=== PATIENT | female | born 1995 | race African-American/Black ===

== ENCOUNTER 2023-09-14 01:03 | Emergency (ER) | payer OTHER, SELFPAY ==
[2023-09-14 01:18] VITALS: BP 134/85; PULSE 98; RESP 18; TEMP 37.2; O2SAT 98; BMI 41.6
--- NOTE | 2023-09-14 05:09 | PC.NURSE ---
PT RANG CALL ANAND APPROX 0340 ASKING WHEN SHE WILL BE SEEN. EDUCATED PATIENT SHE IS WAITING FOR PRIMARY EVAL BY ED PROVIDER, CANNOT GIVE WAIT TIME AT THIS TIME. PT REPORTS SHE DOES NOT NEED TO BE SEEN AND JUST NEEDS A NOTE STATING SHE CAN PARTICIPATE IN THE [employer] WITHOUT RESTRICTIONS. EDUCATED PATIENT WILL NEED TO BE EVALUATED IN ORDER TO OBTAIN THIS NOTE. PATIENT IN AGREEMENT. UPON ROUNDING WITH PATIENTS, PATIENT IS NOT IN ROOM OR WAITING ROOM. PATIENT LWBS.
== END 2023-09-14 05:11 | disposition left against medical advice (07) ==
PROVIDERS: Emergency Provider Emergency Medicine
DX: N64.4 Mastodynia (principal)
CPT/HCPCS: 99281

== ENCOUNTER 2024-01-15 17:15 | Emergency (ER) | payer OTHER, SELFPAY ==
[2024-01-15 17:23] VITALS: BP 149/98; PULSE 101; RESP 20; TEMP 37.2; O2SAT 98; BMI 36.6
--- NOTE | 2024-01-15 17:38 | ED_ITS ---
HPI - Headache General Chief Complaint: Headache Stated Complaint: headache Time Seen by Provider: 01/15/24 21:22 Source: patient Mode of arrival: ambulatory Limitations: no limitations History of Present Illness ED Provider: Dr. Gonzalez HPI Narrative: Patient with a history of headaches, according to her description she has an appointment with a neurologist for pseudotumor cerebri. Tonight she has a worsening headache, no vomiting no blurry vision MD elicited complaint: headache Pertinent past history: migraines Onset (ago): day(s) Onset description: gradually Related Data Previous Rx's ?Medication ?Instructions ?Recorded metoclopramide HCl 10 mg tablet 10 mg PO Q6H PRN headache #14 tabs 01/15/24 (Reglan) Allergies Allergy/AdvReac Type Severity Reaction Status Date / Time No Known Allergies Allergy Verified 01/15/24 17:27 Review of Systems 2 Review of Systems: Yes all other systems are reviewed and are negative Neurologic: Denies Sensory deficit (Neuro) [facility] Social History Social History Advance Directives: No Advance Directives Information Provided: No Do you have a plan to hurt others: No Plan Physical Exam 2 Vital Signs: Vital Signs: Last Vital Signs Temp 97.7 F 01/15/24 22:59 Pulse 80 01/15/24 22:59 Resp 14 01/15/24 22:59 BP 126/80 01/15/24 22:59 Pulse Ox 100 01/15/24 22:59 O2 Del Method Room Air 01/15/24 21:45 BMI result Body Mass Index 36.6 Const: Nutritional Appearance: obese Orientation/consciousness: oriented to person and patient oriented x3 Limitations: no limitations HEENT: Head: Yes normal to inspection Ears: external ears normal General nose exam: Normal external nose present Mouth: Normal oral and palatal mucosa present and oropharynx normal Throat: Yes posterior oropharynx normal Eyes: Other: optic disks normal General: appearance normal, both eyes and all related structures Neck: Other: supple Neck: Yes normal visual inspection Chest: Chest palpation & inspection: normal inspection of the chest Resp: Auscultation: clear to auscultation bilaterally Cardio: Jugular venous distension: no JVD Rate: regular rate Rhythm: r egular rhythm Heart sounds: S1 normal heart sound present and S2 normal heart sound present GI: Inspection: Yes normal to inspection Palpation (GI): Soft to palpation, nontender and No hepatosplenomegaly present Auscultation: normal bowel sounds : General: Yes no CVA tenderness Back/Spine/Pelvis: Back: no CVA tenderness Skin: General skin exam: no rashes or lesions noted Neuro: General: oriented to person and patient oriented x3 Cranial nerves: Yes CN's II-XII intact bilaterally Motor exam (neuro): 5/5 motor strength present throughout Sensory Exam: No Sensory deficit (Neuro) Extrem: General: Yes normal to inspection Psych: Appearance: grossly normal Course Course Course Narrative: This is a Rapid Medical Examination (RME) performed by Caleb Hopkins PA-C in triage. Full HPI, ROS, assessment and treatment plan per primary provider in the Main ED. 28 yo female hx of intracranial HTN here for eval of intractable headache x2 days. reports pain to entire head with assoc nausea w/o vomiting. taking tylenol which temporarily reliefs her AYALA however it never completely resolves. Has first appointment with neurologist on Monday. called PCP today asking for pain meds to carry her over until neuro appointment however they advised her to come to ED instead. + no focal neuro deficits. perrla Plan: labs, migraine cocktail Reevaluation(s) Reevaluation #1: patient well appearing with start on reglan for headache Time: 22:40 Medications Administered Discontinued Medications Generic Name Dose Route Start Last Admin Trade Name Yvanq PRN Reason Stop Dose Admin Acetaminophen 975 mg 01/15/24 19:18 01/15/24 19:22 Acetaminophen 325 Mg Tablet PO 01/15/24 19:19 975 mg ONCE ONE Administration Ketorolac Tromethamine 60 mg 01/15/24 21:29 01/15/24 22:23 Ketorolac Tromethamine 60 Mg/2 Ml Vial IM 01/15/24 21:30 60 mg ONCE ONE Administration Metoclopramide HCl 10 mg 01/15/24 21:29 01/15/24 22:24 Metoclopramide Hcl 10 Mg/2 Ml Vial IM 01/15/24 21:30 10 mg ONCE ONE Administration Medical Decision Making Differential Diagnosis Differential Diagnoses: The differential diagnosis associated with the presentation includes (headache, migraine, pseudotumor cerebri) Lab Data 01/15/24 18:18 01/15/24 18:18 Labs: Lab Results 01/15/24 Range/Units 18:18 WBC 8.6 (4.8-10.8) X10*3/uL RBC 4.97 (4.20-5.50) X10*6/uL Hgb 12.0 (12.0-16.0) g/dl Hct 38.6 (37.0-47.0) % MCV 77.7 L (80.0-98.0) fL MCH 24.1 L (27.0-33.0) pg MCHC 31.1 (31.0-35.0) g/dl RDW 14.7 (11.0-16.0) % Plt Count 281 (160-400) X10*3/uL MPV 11.3 (9.4-12.3) fL Immature Gran % (Auto) 0.1 (0.0-0.4) % Neut % (Auto) 60.9 (45-73) % Lymph % (Auto) 29.5 (20-40) % [place] % (Auto) 6.2 (2-11) % Eos % (Auto) 2.8 (0-4) % Baso % (Auto) 0.5 (0-2) % Lymph # (Auto) 2.5 (1.2-4.9) X10*3/uL [place] # (Auto) 0.5 (0.1-1.2) X10*3/uL Eos # (Auto) 0.2 (0.0-0.4) X10*3/uL Baso # (Auto) 0.0 (0.0-0.2) X10*3/uL Abs Immat Gran (auto) 0.01 (0.00-0.03) X10*3/uL Absolute Neuts (auto) 5.2 (2.0-8.3) x10*3/uL Absolute Nucleated RBC 0.000 (0.0-0.012) X10*3/uL Nucleated RBC % (auto) 0.0 (0.0-0.2) /100WBC Sodium 141 (135-145) mmol/L Potassium 4.1 (3.3-5.1) mmol/L Chloride 109 H (96-108) mmol/L Carbon Dioxide 27 (22-29) mmol/L Anion Gap 9 L (12-20) BUN 11 (9-16) mg/dL Creatinine 0.97 (0.5-1.4) mg/dL Estim Creat Clear Calc 101.9 Estimated GFR > 60 Random Glucose 91 (60-115) mg/dL Calcium 9.6 (8.4-10.2) mg/dL Magnesium 1.7 (1.6-2.6) mg/dL Total Bilirubin 0.3 (0.0-1.0) mg/dL AST 16 (5-31) U/L ALT 12 (0-31) U/L Alkaline Phosphatase 68 (39-117) U/L Total Protein 7.1 (6.5-8.0) g/dL Albumin 3.8 (3.5-5.0) g/dL Beta HCG, Quant < 2 mIU/mL Tests considered The following testing was considered but not selected: CT of brain but patient had recent MRI Prescription Management I considered prescription management with: Antibiotic (no evidence of bacterial infection) Discharge Plan Discharge Clinical Impression: Migraine, Headache, Pseudotumor cerebri Patient Disposition: Home, Self-Care Instructions: Acute Headache (ED) Prescriptions: New metoclopramide HCl [Reglan] 10 mg tablet 10 mg PO Q6H PRN (Reason: headache) Qty: 14 0RF Referrals: Physician,Unknown J [Primary Care Provider] - 3 days Interventions: ED Discharge Assessment Last Done: 01/15/24 22:59 Discharge Date/Time: 01/15/24 23:00 Print Language: Argentine
[2024-01-15 18:22] LABS: MANUAL DIFF FLAG NO
[2024-01-15 18:39] LABS: Basophils Percent Auto 0.5 % (0-2); Eosinophils Absolute Auto 0.2 X10*3/uL (0.0-0.4); Eosinophils Percent Auto 2.8 % (0-4); Hematocrit 38.6 % (37.0-47.0); Imm Gran Abs Auto 0.01 X10*3/uL (0.00-0.03); Imm Gran Pct Auto 0.1 % (0.0-0.4); Lymphocytes Absolute Auto 2.5 X10*3/uL (1.2-4.9); Lymphocytes Percent Auto 29.5 % (20-40); Mean Corpuscular HGB Conc 31.1 g/dl (31.0-35.0); Mean Corpuscular Hemoglobin 24.1 pg (27.0-33.0); Mean Corpuscular Volume 77.7 fL (80.0-98.0); Mean Platelet Volume 11.3 fL (9.4-12.3); Monocytes Absolute Auto 0.5 X10*3/uL (0.1-1.2); Monocytes Percent Auto 6.2 % (2-11); Neutrophils Absolute Auto 5.2 x10*3/uL (2.0-8.3); Neutrophils Percent Auto 60.9 % (45-73); Platelet Count 281 X10*3/uL (160-400); Red Blood Count 4.97 X10*6/uL (4.20-5.50); Red Cell Distribution Width 14.7 % (11.0-16.0); White Blood Count 8.6 X10*3/uL (4.8-10.8)
[2024-01-15 18:50] LABS: Alanine Aminotransferase 12 U/L (0-31); Albumin Level 3.8 g/dL (3.5-5.0); Alkaline Phosphatase 68 U/L (39-117); Anion Gap 9 (12-20); Aspartate Amino Transferase 16 U/L (5-31); Bilirubin Total 0.3 mg/dL (0.0-1.0); Blood Urea Nitrogen 11 mg/dL (9-16); Calcium 9.6 mg/dL (8.4-10.2); Carbon Dioxide 27 mmol/L (22-29); Chloride 109 mmol/L (96-108); Creatinine Clr Calc Pharmacy 101.9; Estimated Glomerular Filt Rate > 60; Glucose Random 91 mg/dL (60-115); HCG Quantitative < 2 mIU/mL; Magnesium 1.7 mg/dL (1.6-2.6); Potassium 4.1 mmol/L (3.3-5.1); Sodium 141 mmol/L (135-145); Total Protein 7.1 g/dL (6.5-8.0)
[2024-01-15] MEDS: Acetaminophen 325 MG TABLET 975 MG PO (19:22)
[2024-01-15 21:45] VITALS: BP 123/82; PULSE 97; RESP 18; TEMP 37.4; O2SAT 99
[2024-01-15] MEDS: Ketorolac Tromethamine 60 MG/2 ML VIAL IM (22:23)
[2024-01-15] MEDS: Metoclopramide HCl 10 MG/2 ML VIAL IM (22:24)
[2024-01-15 22:54] VITALS: BP 126/80; PULSE 80; RESP 14; TEMP 36.5; O2SAT 100
[2024-01-15 22:59] VITALS: BP 126/80; PULSE 80; RESP 14; TEMP 36.5; O2SAT 100
== END 2024-01-15 23:00 | disposition home or self-care (01) ==
PROVIDERS: Physician Assistant Medical; Emergency Provider Emergency Medicine
DX: G43.909 Migraine, unspecified, not intractable, without status migrainosus (principal); G93.2 Benign intracranial hypertension; Z79.899 Other long term (current) drug therapy
CPT/HCPCS: 36415; 80053; 83735; 84702; 85025; 96372; 99283; 99284; J1885; J2765

== ENCOUNTER 2024-10-30 19:09 | Emergency (ER) | payer OTHER, SELFPAY ==
[2024-10-30 19:10] VITALS: BP 132/81; PULSE 121; RESP 20; TEMP 37.1; O2SAT 100; BMI 36.6
--- NOTE | 2024-10-30 19:12 | ECG_ITS ---
Test Reason : CHEST PAIN Blood Pressure : */* mmHG Vent. Rate : 104 BPM Atrial Rate : 104 BPM P-R Int : 126 ms QRS Dur : 76 ms QT Int : 344 ms P-R-T Axes : 47 33 16 degrees QTcB Int : 452 ms Sinus tachycardia Cannot rule out Anterior infarct , age undetermined Abnormal ECG No previous ECGs available Referred By: Luis Hedrick Electronically Signed By: EDWAR DAVIS MD
--- NOTE | 2024-10-30 19:25 | ED_ITS ---
HPI - General Adult General Chief complaint: Chest Pain Stated complaint: Chest Pain Time Seen by Provider: 10/30/24 19:50 Source: patient Mode of arrival: ambulatory Limitations: no limitations History of Present Illness ED Provider: HPI narrative: Patient is obese with no known coronary artery disease no sudden cardiac in the family nonsmoker nonalcoholic no substance abuse comes here for sharp chest pain since she woke up in the morning which is localized to mid chest going to the left arm in the back constant pain reproducible increases on palpation patient is started on phentermine 2 weeks ago for weight loss Related Data Home Medications ?Medication ?Instructions ?Recorded ?Confirmed phentermine 15 mg 10/30/24 Previous Rx's ?Medication ?Instructions ?Recorded metoclopramide HCl 10 mg tablet 10 mg PO Q6H PRN heada winifred #14 tabs 01/15/24 (Reglan) Allergies Allergy/AdvReac Type Severity Reaction Status Date / Time No Known Allergies Allergy Verified 10/30/24 19:26 Review of Systems 2 Review of Systems: Yes all other systems are reviewed and are negative [facility] Social History Social History Smoked in Last 30 Days: No Use of substances other than those prescribed or required for medical reasons: No Advance Directives: No Advance Directives Information Provided: No Do you have a plan to hurt others: No Plan Patient : No Physical Exam ED Vital Signs: Vital Signs - 24 hr 10/30/24 19:10 10/30/24 20:27 10/30/24 20:27 Temperature 98.8 F 98.8 F 98.5 F Pulse Rate 121 H 95 94 Respiratory Rate 20 20 20 Blood Pressure 132/81 132/81 143/79 H Pulse Oximetry 100 100 100 Oxygen Delivery Method Room Air Room Air Room Air BMI result Body Mass Index 36.6 Appearance: Alert. Oriented X3. No acute distress. Eyes: no pallor or icterus ENT: Pharynx normal Oral Mucosa moist tympanic membrane intact no erythema, Neck: Normal inspection. Neck supple. CVS: Normal heart rate and rhythm. Pulses normal. Respiratory: No respiratory distress. Equal air entry bilateral, no wheezing/rales/rhonchi Abd: soft, not tender Skin: Skin warm and dry. Normal skin color. Normal skin turgor. Extremities: No lower extremity edema, no calf tenderness Neuro: Oriented X 3. Course Course Course Narrative: RME, this is a rapid medical exam performed by Brennan Hedrick please refer to primary provider for complete H&P- 29 year old female presents for evaluation of left sided chest pain since this morning. She recently started a new medication phentermine for appetitie suppression. Plan for cardiac wokrup Medical Decision Making Lab Data MDM Lab Attestation statement: I reviewed the patient's lab results. 10/30/24 19:46 10/30/24 19:46 Labs: Lab Results 10/30/24 Range/Units 19:46 WBC 7.6 (4.8-10.8) X10*3/uL RBC 5.15 (4.20-5.50) X10*6/uL Hgb 12.9 (12.0-16.0) g/dl Hct 38.7 (37.0-47.0) % MCV 75.1 L (80.0-98.0) fL MCH 25.0 L (27.0-33.0) pg MCHC 33.3 (31.0-35.0) g/dl RDW 13.9 (11.0-16.0) % Plt Count 265 (160-400) X10*3/uL MPV 10.9 (9.4-12.3) fL Immature Gran % (Auto) 0.3 (0.0-0.4) % Neut % (Auto) 59.7 (45-73) % Lymph % (Auto) 32.4 (20-40) % [place] % (Auto) 5.1 (2-11) % Eos % (Auto) 2.1 (0-4) % Baso % (Auto) 0.4 (0-2) % Lymph # (Auto) 2.5 (1.2-4.9) X10*3/uL [place] # (Auto) 0.4 (0.1-1.2) X10*3/uL Eos # (Auto) 0.2 (0.0-0.4) X10*3/uL Baso # (Auto) 0.0 (0.0-0.2) X10*3/uL Abs Immat Gran (auto) 0.02 (0.00-0.03) X10*3/uL Absolute Neuts (auto) 4.6 (2.0-8.3) x10*3/uL Absolute Nucleated RBC 0.000 (0.0-0.012) X10*3/uL Nucleated RBC % (auto) 0.0 (0.0-0.2) /100WBC Sodium 141 (135-145) mmol/L Potassium 3.8 (3.3-5.1) mmol/L Chloride 109 H (96-108) mmol/L Carbon Dioxide 25 (22-29) mmol/L Anion Gap 11 L (12-20) BUN 7 L (9-16) mg/dL Creatinine 0.88 (0.5-1.4) mg/dL Estim Creat Clear Calc 99.6 Estimated GFR > 60 Random Glucose 106 (60-115) mg/dL Calcium 9.0 D (8.4-10.2) mg/dL Magnesium 1.8 (1.6-2.6) mg/dL Total Bilirubin 0.5 (0.0-1.0) mg/dL AST 24 (5-31) U/L ALT 15 (0-31) U/L Alkaline Phosphatase 73 (39-117) U/L Troponin I High Sens < 2.7 (<3.5-17.0) ng/L Total Protein 7.4 (6.5-8.0) g/dL Albumin 4.0 (3.5-5.0) g/dL Lipase 15 (8-78) U/L TSH 1.05 (0.32-4.0) uIU/mL Beta HCG, Quant < 2 mIU/mL Discharge Plan Discharge Clinical Impression: Atypical chest pain Patient Disposition: Home, Self-Care Instructions: Chest Pain (ED) Additional Instructions: Your blood workup negative for acute cardiac given your chest pain is likely musculoskeletal Follow with your PCP as needed Prescriptions: No Action phentermine 15 mg metoclopramide HCl [Reglan] 10 mg tablet 10 mg PO Q6H PRN (Reason: headache) Qty: 14 0RF Interventions: ED Discharge Assessment Last Done: 10/30/24 20:27 Discharge Date/Time: 10/30/24 20:37 Print Language: Qatari
--- OUTSIDE RECORDS SUMMARY | 2024-10-30 19:40 | XMS_ITS | Clinical Summary ---
Author Organization [facility] Address [address] [place] [address] Care Team Providers Care Endoscopy Registered Nurse Name Role Phone Bouchra Benson MAINFRAME DEVELOPER Primary Care Provider [phone] Source Comments PLEASE NOTE, if this patient is a minor, it may be UNLAWFUL to discuss sensitive information that is contained in these records (such as FAMILY PLANNING, MENTAL HEALTH or SUBSTANCE ABUSE) with the minor patient's parent or other person without the patient's specific authorization.[facility] Allergies No known active allergies Medications PEG 400-propylene glycol (SYSTANE) 0.4-0.3 % ophthalmic solution Place 1 Drop into the left eye as needed for dry eyes 28 Each 1 7 Active pseudoephedrine (SUDAFED) 30 mg tabletIndicatio ns:Sore throat,Acute cough Take 1 Tablet by mouth every 4 to 6 (four to six) hours as needed for congestion 30 Tablet 3 Active fluticasone (FLONASE) 50 mcg/actuation nasal sprayIndication s:Sore throat,Acute cough Place 2 Sprays in both nostrils once daily 16 g 3 Active topiramate (TOPAMAX) 25 mg tablet Take 25 mg by mouth nightly at bedtime 4 Active riboflavin, vitamin B2, 400 mg tab Take one capsule at bedtime every night 4 Active medroxyPROGESTE John (DEPO-PROVERA) 150 mg/mL injection Inject 1 mL into the muscle every 3 (three) months 1 mL 4 Active ibuprofen 600 mg tablet Take 1 Tablet by mouth 3 (three) times daily as needed for headaches 90 Tablet 4 Active acetaminophen (TYLENOL) 500 mg tabletIndicatio ns:Tooth pain Take 2 Tablets by mouth every 6 (six) hours as needed for pain 60 Tablet 5 Active phentermine (IONAMIN) 15 mg capsuleIndicati ons:Class 2 obesity due to excess calories without serious comorbidity with body mass index (BMI) of 35.0 to 35.9 in adult Take 1 Capsule by mouth every morning. Max Daily Amount: 15 mg 30 Capsule 2 5 Active phentermine (IONAMIN) 15 mg capsuleIndicati ons:Class 2 obesity due to excess calories without serious comorbidity with body mass index (BMI) of 35.0 to 35.9 in adult Take 1 Capsule by mouth every morning. Max Daily Amount: 15 mg 30 Capsule 2 5 10/19/19 25 Discontin ued(Cance lled) Active Problems Problem Noted Date Diagnosed Date Tooth pain 05/15/2024 Overview (05/15/2024): Has wisdom tooth decay and needs removal. She has appt scheduled with dentist. Will rx tylenol to take as needed Papanicolaou smear for cervical cancer screening 05/15/2024 Assessment & Plan (05/15/2024 7:04 PM EST): Sent for pap with co-testing if ascus Migraine without aura and wi thout status migrainosus, not intractable 04/09/2024 Overview (04/09/2024): 12/2023 referral to ophthalmology for detailed assessment if ocular pressure - no indication for LP given reassuring exam/clinical history but will consider in future should there be suspicion for increased intracranial pressure - start topiramate 25 mg, Mg citrate, riboflavin nightly - RTC in 3-4 months - Risks and benefits of starting the above medication were discussed with the patient verbalized their understanding - patient was instructed to present to the ED should she experience any concerning red flag sx Patient seen and discussed with attending neurologist Dr. Whipple Pt dc'ed her topiramate and ribo as it was making her very sleepy. She has upcoming appt and will mention this to her provider. She will continue taking ibuprofen and tylenol Class 2 obesity due to exces s calories without serious comorbidity with body mass index (BMI) of 35.0 to 35.9 in adult 04/09/2024 Overview (10/18/2024): Reviewed diet and exercise. Will continue to address at further visits 09/2024 Current weight 230lbs Refer to hospital carrier Start phentermine 15mg once a day Reviewed admin and possible side effects, keep med secured Check weight at next f/u and titrate up if needed Enlarged lymph nodes, unspecified 04/09/2024 Overview (04/09/2024): MRI Brain 1. No evidence of intracranial mass, intracranial hemorrhage, acute or subacute infarction, hydrocephalus, or abnormal intracranial enhancement. 2. No findings to suggest idiopathic intracranial hypertension by MRI. 3. Multiple prominent lymph nodes within the bilateral suboccipital regions and bilateral parotid regions that measure up to 1 cm in diameter and prominent to mildly enlarged bilateral retropharyngeal lymph nodes, right larger than left, which are nonspecific. Per pt report-She was referred to [facility] and has US scheduled to further evaluate control counseling 04/09/2024 Overview (04/09/2024): Earliest that can receive 04/20, she will schedule appt with OB nurse Encounters Date Type Department Care Team Description 10/18/2024 2:00 PM EDT Telemedicine Visit [facility] [address] [place] [id number] Labour, Bouchra, MAINFRAME DEVELOPER from Last 3 Months Immunizations Immunization Administration Dates Next Due Flu, Cell Culture based, Pre servative Free, 6m+, Flucelvax 02/27/2023 Flu, Preservative Free 02/23/2022 Hep B,adult,adjuvanted (HEPLISAV) 05/13/2024 TDAP 05/13/2024 Social History Tobacco Use Types Packs/Day Years Used Date Smoking Tobacco: Never Tobacco Cessation:Counseling Given: Not Answered Social Connections Answer Date Recorded Connectedness 0 03/15/2024 Financial Resource Strain Answer Date R ecorded Financial Resource Strain 0 2023 Stress Answer Date Recorded Stress 0 03/15/2024 Physical Activity Answer Date Recorded Physical Activity 0 03/15/2024 Food Insecurity Answer Date Recorded Within the past 12 months, t he food you bought just didn't last and you didn't have enough money to get more. 1 04/09/20 24 Transportation Needs Answer Date Record ed In the past 12 months, has l ack of transportation kept you from medical appointments, meetings, work or from getting things needed for daily living? (Check all that apply) 1 2023 Housing Stability Answer Date Recorded What is your housing situation today? 1 04/09/2024 Safety and Environment Answer Date Dipesh rded How often does anyone, inclu ding family and friends, physically hurt you? 1 04/09/2024 Utilities Answer Date Recorded In the past 12 months has th e electric, gas, oil, or water company threatened to shut off services in your home? 1 04/09/2024 Employment Answer Date Recorded Do you want help finding or keeping work or a albina b? 1 04/09/2024 Comments No Sex and Gender Information Value Date Recorded Sex Assigned at Female 04/09/2024 11:01 AM PST Legal Sex Female 8:00 PM PDT Gender Identity Female 04/09/2024 11:01 AM PST Sexual Orientation Straight 04/09/2024 11 :01 AM PST Last Filed Vital Signs Vital Sign Reading Time Taken Comments Blood Pressure 122/68 05/13/2024 2:54 PM EST Pulse 95 05/13/2024 2:54 PM EST Temperature 36.7 C (98.1 F) 05/13/2024 2:54 PM EST Respiratory Rate - - Oxygen Saturation 100% 05/13/2024 2:54 PM EST Inhaled Oxygen Concentration - - Weight 102.2 kg (225 lb 6.4 oz) 05/13/2024 2:54 PM EST Height 170 cm (5' 6.93 ) 05/13/2024 2:54 PM EST Body Mass Index 35.38 05/13/2024 2:54 PM EST Plan of Treatment Upcoming Encounters Date Type Department Care Team (Late st Contact Info) Description 12/09/2024 1:30 PM EDT Office Visit [facility] [address] [place] [phone] Kelley, Bouchra, NICOLETTE [address] [place] [address] Health Maintenance Due Date Last Done Comments Anxiety Screening 1996 HPV Screening 1996 Hepatitis C Screening 1996 Lipid Screening 1996 Pap + HPV 1996 HIV Screening 09/27/2011 [id number] ( season) 2023 Imm-Hepatitis B (2 of 2 - Cp G 2-dose series) 06/10/2024 05/13/2024 [id number] INJ 08/05/2024 05/13/2024 Imm-Influenza (Season Ended) 2024 02/27/2023, 02/23/2022 Relationship Safety Screening/Counseling 04/09/2025 04/09/2024 Tobacco Screening 04/09/2025 04/09/2024 Hypertension Screening (#1) 05/13/2025 Cervical Cancer Screening 05/13/2027 Pap Smear 05/13/2027 05/13/2024 Diabetes Screening 08/01/2027 07/31/2024, 04/09/2024 Imm-DTaP/Tdap/Td (2 - Td or Tdap) 05/13/2034 025 Alcohol and Drug Screen Completed 05/13/2024, 04/09 Depression Annual Screen Completed 05/13/2024 Cervical Ablation/Cold-Knife Conization Discontinued Cervical Cryotherapy Discontinued Colposcopy Discontinued Endometrial Biopsy Discontinued Excision/Leep Discontinued HPV Genotyping Discontinued Vaginal Pap Discontinued Vulvoscopy Discontinued Procedures Procedure Name Priority Date/Time Associated Diagnosis Comments CYTOLOGY, CERVICAL LIQUID-BASED PAP (SCREENING) Routine 05/13/2024 4:21 PM EST Papanicolaou smear for cervical cancer screening HEMOGLOBIN GLYCOSYLATED A1C Routine 04/09/2024 3:23 PM EST Encounter to establish care from Last 3 Months or Most Recently Relevant to Health Maintenance Results * CYTOLOGY, CERVICAL LIQUID-BASED PAP (SCREENING) (05/13/2024 4:21 PM EST) PRIMARY INTERPRETATION MICHELLE MARTINEZ [facility] ADEQUACY SATISFACTOR Y; NO ECC SATISFACTORY [facility] HPV NEGATIVE NEGATIVE [facility] Cervix Cervix uteri structure / Unknown 05/13/2024 4:21 PM EST Impressions [facility] - 06/07/2024 3:01 PM EST Date Taken: 05/13/2024 Date Received: 05/15/2024 Physicians: Source of Specimen(s) CERVICAL LIQUID BASED (S) (CERVICAL LIQUID PAP (S) (SUREPATH VIAL)) Cytology Pap Stain, HPV Tube Labels Final Cytologic Diagnosis CERVICAL LIQUID PAP (S) (SUREPATH VIAL): SATISFACTORY FOR EVALUATION; ENDOCERVICAL COMPONENT ABSENT. NEGATIVE FOR INTRAEPITHELIAL LESION OR MALIGNANCY (NILM). FUNGAL ORGANISMS CONSISTENT WITH SAQIB SPECIES PRESENT. Report Electronically Signed LIZZ Chakraborty (ASCP) [facility] LIZZ Chakraborty (ASCP) Clinical diagnosis and History Date of Last Menstrual Period: UNKNOWN Menstrual Status: On Depo Provera Human Papilloma Virus (HPV) Status Report Interpretation RESULTS: NO HIGH RISK HPV DETECTED (NEGATIVE) TYPE RESULT HPV16 Negative HPV18 Negative Other HR HPV Negative us Bouchra Labour MAINFRAME DEVELOPER LAB - PATHOLOGY AND CYTOLOGY A MBULATORY Final Result [facility] [address] [facility] [address], [place] [phone] * HEMOGLOBIN, GLYCOSYLATED (A1C) ([facility] A1C) (04/09/2024 3:23 PM EST) HEMOGLOBIN A1C 5.6 4.0 - 5.6 % [facility] Comment: PLEASE NOTE NEW REFERENCE RANGE Initial Diagnosis of Diabetes: Increased risk for diabetes (pre-diabetes): 5.7-6.4% Diabetes: > or = 6.5% Patients with Diagnosis of Diabetes: In patients with diabetes, HbA1c goals should be discussed with a healthcare provider. The [place]zon hemoglobin A1c assay should not be used to diagnose or monitor diabetes in patients with altered red cell lifespan, such as homozygous hemoglobin variants, Hb SC, HbF > 5%, and hemolytic anemia. Blood Blood / Unknown 04/09/2024 3 :23 PM EST 04/09/2024 3:45 PM EST us Bouchra Labour MAINFRAME DEVELOPER LAB - BLOOD DRAW Final Result [facility] [address] [place] [address], from Last 3 Months or Most Recently Relevant to Health Maintenance Insurance [place] MEDICAID Care Teams Endoscopy Registered Nurse Relationship Specialty Start Date End Date Bouchra Benson NP [address] [place] [id number] PCP - General Family Medicine, MAINFRAME DEVELOPER 03/15/24
[2024-10-30 19:51] LABS: MANUAL DIFF FLAG NO
[2024-10-30 19:52] LABS: Hematocrit 38.7 % (37.0-47.0); Hemoglobin 12.9 g/dl (12.0-16.0); Imm Gran Abs Auto 0.02 X10*3/uL (0.00-0.03); Imm Gran Pct Auto 0.3 % (0.0-0.4); Lymphocytes Absolute Auto 2.5 X10*3/uL (1.2-4.9); Mean Corpuscular HGB Conc 33.3 g/dl (31.0-35.0); Mean Corpuscular Hemoglobin 25.0 pg (27.0-33.0); Mean Corpuscular Volume 75.1 fL (80.0-98.0); NRBC Abs Auto 0.000 X10*3/uL (0.0-0.012); NRBC Pct Auto 0.0 /100WBC (0.0-0.2); Platelet Count 265 X10*3/uL (160-400); Red Blood Count 5.15 X10*6/uL (4.20-5.50); White Blood Count 7.6 X10*3/uL (4.8-10.8)
[2024-10-30 20:16] LABS: Alanine Aminotransferase 15 U/L (0-31); Albumin Level 4.0 g/dL (3.5-5.0); Alkaline Phosphatase 73 U/L (39-117); Anion Gap 11 (12-20); Aspartate Amino Transferase 24 U/L (5-31); Blood Urea Nitrogen 7 mg/dL (9-16); Calcium 9.0 mg/dL (8.4-10.2); Carbon Dioxide 25 mmol/L (22-29); Chloride 109 mmol/L (96-108); Creatinine Clr Calc Pharmacy 99.6; Estimated Glomerular Filt Rate > 60; Lipase 15 U/L (8-78); Magnesium 1.8 mg/dL (1.6-2.6); Potassium 3.8 mmol/L (3.3-5.1); Sodium 141 mmol/L (135-145); Total Protein 7.4 g/dL (6.5-8.0)
[2024-10-30 20:18] LABS: Troponin-I High Sensitivity < 2.7 ng/L (<3.5-17.0)
[2024-10-30 20:27] VITALS: BP 132/81; BP 143/79; PULSE 94; PULSE 95; RESP 20; TEMP 36.9; TEMP 37.1; O2SAT 100
== END 2024-10-30 20:37 | disposition home or self-care (01) ==
PROVIDERS: Physician Assistant; Emergency Provider Internal Medicine
DX: R07.89 Other chest pain (principal); Z79.899 Other long term (current) drug therapy
CPT/HCPCS: 36415; 80053; 83690; 83735; 84443; 84484; 84702; 85025; 93005; 99283; 99284

== ENCOUNTER → 2024-10-30 19:12 | Outpatient (BNV) | payer OTHER, SELFPAY | PROVIDERS: Emergency Provider Internal Medicine; Visit Provider Internal Medicine Cardiovascular Disease | DX: R00.0 Tachycardia, unspecified (principal) | CPT/HCPCS: 93010 ==